=== PATIENT | male | born 1950 | race Caucasian/White ===

== ENCOUNTER 2017-04-07 12:01 | Day surgery (SDC) | payer MEDICARE ==
[~2017-04-07] VITALS: Ht 172.7 cm; Wt 69.4 kg
[~2017-04-07 12:01] MED LIST: LEVSOD100 PO; OXYC5 PO
[2018-02-05] MEDS ORDERED: LEVSOD100 PO (15:13)
[2018-02-05] MEDS ORDERED: Synthroid112 MCG PO (15:14)
== END 2017-04-07 15:00 | disposition home or self-care (01) ==
LOC: ORSCSDS 12:01
PROVIDERS: Surgery
PROC: 0DJD8ZZ Inspection of Lower Intestinal Tract, Via Natural or Artificial Opening Endoscopic (ICD-10-PCS; principal; 2017-04-07 13:30)
DX: Z12.11 Encounter for screening for malignant neoplasm of colon (principal); I10 Essential (primary) hypertension; E03.9 Hypothyroidism, unspecified; Z79.899 Other long term (current) drug therapy
CPT/HCPCS: J2405; J7120

== ENCOUNTER 2018-02-25 09:19 | Day surgery (SDC) | payer MEDICARE, OTHER ==
[~2018-02-25] VITALS: Ht 172.7 cm; Wt 72.6 kg
[~2018-02-25 09:19] MED LIST changes: +Synthroid112 MCG PO
[2018-02-25] MEDS ORDERED: LOSA25 PO (09:36)
[2018-02-25] MEDS ORDERED: VALA500 PO (09:37)
--- NOTE | 2018-02-25 11:07 | NUR ---
02/25/18 1107 Jesus Alberto New INTRASCALING BLOCK COMPLETED IN OR BY DR. YU WITHOUT DIFFICULTY. PT TOLERATED PROCEDURE WELL.
--- NOTE | 2018-02-25 12:31 | NUR ---
02/25/18 1231 AyadRashmi Mili 1220 PT. GIVEN REGLAN FOR NAUSEA PER DR. DE LA ROSA. PT. VERBALIZES NAUSEA A LITTLE BETTER AFTER REGLAN GIVEN. ICE CHIPS & WATER AT SIDE BUT PT. DIDN'T WANT ANYTHING P.O. AT THIS TIME. PT. ALSO DIDN'T WANT HIS GIRLFRIEND BACK AT THIS TIME. PT. GIVEN A WARM BLANKET & CALL LIGHT WITHIN REACH.
== END 2018-02-25 14:17 | disposition home or self-care (01) ==
LOC: ORSCSDS 09:19
PROVIDERS: Orthopaedic Surgery
PROC: 0RNK4ZZ Release Left Shoulder Joint, Percutaneous Endoscopic Approach (ICD-10-PCS; principal; 2018-02-25 10:30)
PROC: 0LQ24ZZ Repair Left Shoulder Tendon, Percutaneous Endoscopic Approach (ICD-10-PCS; principal; 2018-02-25 10:30)
DX: M75.112 Incomplete rotator cuff tear or rupture of left shoulder, not specified as traumatic (principal); M75.42 Impingement syndrome of left shoulder; M75.32 Calcific tendinitis of left shoulder; I10 Essential (primary) hypertension; Z79.899 Other long term (current) drug therapy; E03.9 Hypothyroidism, unspecified
CPT/HCPCS: C1713; J0171; J0690; J1100; J2250; J2370; J2405; J2710; J2765; J3010; J7120

== ENCOUNTER 2018-08-04 20:05 | Emergency (ER) | payer MEDICARE, OTHER ==
[~2018-08-04] VITALS: Ht 172.7 cm; Wt 74.8 kg
[~2018-08-04 20:05] MED LIST changes: +LOSA25 PO; +VALA500 PO
[2018-08-04 20:56] LABS: BASOPHILS ABSOLUTE AUTO 0.01 K/mm3 (0.00-0.23); BASOPHILS PERCENT AUTO 0 % (0-2); EOSINOPHILS ABSOLUTE AUTO 0.14 K/mm3 (0.00-0.68); EOSINOPHILS PERCENT AUTO 3 % (0-6); Hematocrit 40.7 % (37.0-53.0); Hemoglobin 13.9 g/dL (13.5-17.5); IMMATURE GRAN ABSOLUTE AUTO 0.01 K/mm3 (0.00-0.10); IMMATURE GRAN PERCENT AUTO 0 % (0-1); LYMPHOCYTES PERCENT AUTO 20 % (21-46); MONOCYTES ABSOLUTE AUTO 0.77 K/mm3 (0.16-1.47); MONOCYTES PERCENT AUTO 14 % (4-13); Mean Corpuscular HGB 33.3 pg (26.0-34.0); Mean Corpuscular HGB Conc 34.2 g/dL (31.5-36.5); Mean Corpuscular Volume 97 fL (80-100); Mean Platelet Volume 9.3 fL (9.1-12.4); NEUTROPHILS ABSOLUTE AUTO 3.56 K/mm3 (1.96-9.15); NEUTROPHILS PERCENT AUTO 64 % (41-73); Platelet Count 270 K/mm3 (150-400); RDW Coefficient Variation 12.7 % (11.7-14.2); RDW Standard Deviation 45.9 fL (35.1-46.3); Red Blood Cell Count 4.18 M/mm3 (4.30-5.90); White Blood Cell Count 5.59 K/mm3 (4.00-11.30)
[2018-08-04 21:18] LABS: Alanine Aminotransfer (ALT/SGP 23 U/L (12-78); Albumin, Blood 4.1 g/dL (3.4-5.0); Albumin/Globulin Ratio 1.2 (0.8-1.8); Alk Phos 57 U/L (50-136); Anion Gap 6 mmol/L (6-16); Aspartate Aminotrans (AST/SGOT 17 U/L (12-37); Bilirubin, Total 0.4 mg/dL (0.1-1.0); Blood Urea Nitrogen 16 mg/dL (8-24); Bun/Creatinine Ratio 17.5 (12.0-20.0); CO2, Blood 27 mmol/L (21-32); Calcium, Blood 8.8 mg/dL (8.5-10.1); Chloride, Blood 101 mmol/L (98-108); Creatinine, Blood 0.92 mg/dL (0.60-1.20); Globulin, Blood 3.5 g/dL (2.2-4.0); Glomerular Filtration Rate >60 (60-); Glucose, Blood 90 mg/dL (70-99); Sodium, Blood 134 mmol/L (136-145); Total Protein, Blood 7.6 g/dL (6.4-8.2); Troponin I <0.015 ng/mL (0.000-0.040)
== END 2018-08-04 22:50 | disposition home or self-care (01) ==
LOC: ER 20:05
PROVIDERS: Emergency Medicine
DX: I10 Essential (primary) hypertension (principal); Z85.850 Personal history of malignant neoplasm of thyroid; Z79.899 Other long term (current) drug therapy
CPT/HCPCS: 71046; 80053; 83690; 84484; 85025; 93005; 93010; 99284-25

== ENCOUNTER → 2020-05-18 | Outpatient (CLI) | payer OTHER ==
[~2020-05-18] MED LIST changes: +AMBIEN5 MG PO; +AMLODIPINE BES2.5 MG PO; +BACLOFEN10 M4 PO; +LEVOTHYROXINE PO; +MAG-OXIDE MAGN200 MG PO; +METOPROLOL TART25 MG PO; +Vitamin E400 UNI4 PO; +ZYRTEC10 M4 PO; +[UNRECOGNIZED DRUG - OTHER] PO
== END ==
LOC: PLD 12:05 → LAB SHORT 12:05
DX: C44.519 Basal cell carcinoma of skin of other part of trunk (principal); C44.612 Basal cell carcinoma of skin of right upper limb, including shoulder
CPT/HCPCS: 88305

== ENCOUNTER → 2020-06-15 | Outpatient (CLI) | payer OTHER | END | disposition home or self-care (01) | LOC: LAB SHORT 15:18 | DX: C44.519 Basal cell carcinoma of skin of other part of trunk (principal) | CPT/HCPCS: 88305 ==

== ENCOUNTER 2020-08-30 14:08 | Emergency (ER) | payer OTHER ==
[~2020-08-30] VITALS: Ht 172.7 cm; Wt 75.3 kg
[~2020-08-30 14:08] MED LIST changes: -AMBIEN5 MG PO; -AMLODIPINE BES2.5 MG PO; -BACLOFEN10 M4 PO; -LEVOTHYROXINE PO; -MAG-OXIDE MAGN200 MG PO; -METOPROLOL TART25 MG PO; -Vitamin E400 UNI4 PO; -ZYRTEC10 M4 PO; -[UNRECOGNIZED DRUG - OTHER] PO
[2020-08-30] MEDS ORDERED: AMLODIPINE BES2.5 MG PO (14:16)
[2020-08-30] MEDS ORDERED: LEVOTHYROXINE PO (14:17)
[2020-08-30] MEDS ORDERED: BACLOFEN10 M4 PO (14:17)
[2020-08-30] MEDS ORDERED: Vitamin E400 UNI4 PO (14:17)
[2020-08-30] MEDS ORDERED: METOPROLOL TART25 MG PO (14:17)
[2020-08-30] MEDS ORDERED: ZYRTEC10 M4 PO (14:17)
[2020-08-30] MEDS ORDERED: AMBIEN5 MG PO (14:18)
[2020-08-30] MEDS ORDERED: MAG-OXIDE MAGN200 MG PO (14:18)
[2020-08-30] MEDS ORDERED: [UNRECOGNIZED DRUG - OTHER] PO (14:18)
[2020-08-30 14:43] LABS: BASOPHILS ABSOLUTE AUTO 0.01 K/mm3 (0.00-0.23); BASOPHILS PERCENT AUTO 0 % (0-2); EOSINOPHILS ABSOLUTE AUTO 0.07 K/mm3 (0.00-0.68); EOSINOPHILS PERCENT AUTO 1 % (0-6); Hematocrit 36.7 % (37.0-53.0); Hemoglobin 12.6 g/dL (13.5-17.5); IMMATURE GRAN ABSOLUTE AUTO 0.02 K/mm3 (0.00-0.10); IMMATURE GRAN PERCENT AUTO 0 % (0-1); LYMPHOCYTES ABSOLUTE AUTO 1.47 K/mm3 (0.84-5.20); LYMPHOCYTES PERCENT AUTO 19 % (21-46); MONOCYTES ABSOLUTE AUTO 1.08 K/mm3 (0.16-1.47); MONOCYTES PERCENT AUTO 14 % (4-13); Mean Corpuscular HGB 33.5 pg (26.0-34.0); Mean Corpuscular HGB Conc 34.3 g/dL (31.5-36.5); Mean Corpuscular Volume 98 fL (80-100); Mean Platelet Volume 9.3 fL (9.1-12.4); NEUTROPHILS ABSOLUTE AUTO 5.03 K/mm3 (1.96-9.15); NEUTROPHILS PERCENT AUTO 66 % (41-73); Platelet Count 323 K/mm3 (150-400); RDW Standard Deviation 46.5 fL (35.1-46.3); Red Blood Cell Count 3.76 M/mm3 (4.30-5.90); White Blood Cell Count 7.68 K/mm3 (4.00-11.30)
[2020-08-30 14:58] LABS: Albumin, Blood 3.6 g/dL (3.4-5.0); Albumin/Globulin Ratio 0.9 (0.8-1.8); Bilirubin, Total 0.5 mg/dL (0.1-1.0); Bun/Creatinine Ratio 21.3 (12.0-20.0); Calcium, Blood 8.7 mg/dL (8.5-10.1); Creatinine, Blood 1.41 mg/dL (0.60-1.20); Globulin, Blood 3.8 g/dL (2.2-4.0); Magnesium, Blood 2.5 mg/dL (1.6-2.4); Potassium, Blood 4.6 mmol/L (3.5-5.5); Total Protein, Blood 7.4 g/dL (6.4-8.2)
== END 2020-08-30 16:00 | disposition home or self-care (01) ==
LOC: ER 14:08
PROVIDERS: Emergency Medicine
DX: E86.0 Dehydration (principal); R39.2 Extrarenal uremia; Z79.899 Other long term (current) drug therapy
CPT/HCPCS: 80053; 82947; 83735; 85025; 93005; 93010; 99285-25; J7030

== ENCOUNTER → 2020-10-16 | Outpatient (CLI) | payer OTHER ==
[~2020-10-16] MED LIST changes: +AMBIEN5 MG PO; +AMLODIPINE BES2.5 MG PO; +BACLOFEN10 M4 PO; +LEVOTHYROXINE PO; +MAG-OXIDE MAGN200 MG PO; +METOPROLOL TART25 MG PO; +Vitamin E400 UNI4 PO; +ZYRTEC10 M4 PO; +[UNRECOGNIZED DRUG - OTHER] PO
== END | disposition home or self-care (01) ==
LOC: LAB 11:12 → LAB SHORT 11:12
DX: D48.5 Neoplasm of uncertain behavior of skin (principal)
CPT/HCPCS: 88305

== ENCOUNTER → 2021-01-30 | Outpatient (CLI) | payer OTHER | END | disposition home or self-care (01) | LOC: LAB SHORT 07:42 | DX: I78.1 Nevus, non-neoplastic (principal); L57.8 Other skin changes due to chronic exposure to nonionizing radiation | CPT/HCPCS: 88305 ==

== ENCOUNTER → 2022-01-23 | Outpatient (CLI) | payer MEDICARE | LOC: PLD 08:15 → LAB SHORT 08:15 | DX: L72.11 Pilar cyst (principal) | CPT/HCPCS: 88304 ==

== ENCOUNTER → 2022-06-12 | Outpatient (CLI) | payer MEDICARE | LOC: LAB 16:16 → LAB SHORT 16:16 | DX: L08.0 Pyoderma (principal) | CPT/HCPCS: 87102 ==

== ENCOUNTER 2023-06-20 13:08 | Emergency (ER) | payer OTHER ==
[~2023-06-20] VITALS: Ht 172.7 cm; Wt 79.4 kg
[2023-06-20] MEDS ORDERED: Ondansetron HCl 2 MG / ML 2ML Vial ONE (13:26)
[2023-06-20] MEDS ORDERED: NS 1,000 ML IV SCH (13:30)
[2023-06-20] MEDS ORDERED: Ondansetron HCl 2 MG / ML 2ML Vial IV ONE (13:30)
[2023-06-20 14:01] LABS: Hematocrit 36.6 % (37.0-53.0); Hemoglobin 12.4 g/dL (13.5-17.5); Mean Corpuscular HGB Conc 33.9 g/dL (31.5-36.5); Mean Corpuscular Volume 97 fL (80-100); Mean Platelet Volume 9.6 fL (9.1-12.4); Platelet Count 291 K/mm3 (150-400); RDW Coefficient Variation 12.6 % (11.7-14.2); RDW Standard Deviation 45.3 fL (35.1-46.3); Red Blood Cell Count 3.76 M/mm3 (4.30-5.90); White Blood Cell Count 11.26 K/mm3 (4.00-11.30)
[2023-06-20 14:26] LABS: Albumin, Blood 3.5 g/dL (3.4-5.0); Albumin/Globulin Ratio 0.8 (0.8-1.8); Bilirubin, Total 0.5 mg/dL (0.1-1.0); Bun/Creatinine Ratio 24.2 (12.0-20.0); Calcium, Blood 8.9 mg/dL (8.5-10.1); Creatinine, Blood 1.24 mg/dL (0.60-1.20); Globulin, Blood 4.2 g/dL (2.2-4.0); Potassium, Blood 4.1 mmol/L (3.5-5.5); Total Protein, Blood 7.7 g/dL (6.4-8.2)
[2023-06-20 14:29] LABS: BAND PERCENT MAN 12 % (0-8); BASOPHILS PERCENT MAN 0 % (0-2); EOSINOPHILS ABSOLUTE MAN 0.11 K/mm3 (0.00-0.68); EOSINOPHILS PERCENT MAN 1 % (0-6); LYMPHOCYTES ABSOLUTE MAN 0.45 K/mm3 (0.84-5.20); LYMPHOCYTES PERCENT MAN 4 % (21-46); MONOCYTES ABSOLUTE MAN 1.01 K/mm3 (0.16-1.47); MONOCYTES PERCENT MAN 9 % (4-13); NEUTROPHILS ABSOLUTE MAN 9.68 K/mm3 (1.96-9.15); SEG NEUTROPHILS PERCENT MAN 74 % (41-73); TOTAL CELLS COUNTED 100
[2023-06-20] MEDS ORDERED: ONDA4ODT MM (15:52)
[2023-06-20] MEDS ORDERED: LOPE2C PO (15:52)
[2023-06-20 17:40] VITALS: BP 142/90
[2023-06-20 18:30] LABS: Adenovirus F 40/41 Not Detected (NOT DETECT); Astrovirus Not Detected (NOT DETECT); Campylobacter Sp Not Detected (NOT DETECT); Cryptosporidium Not Detected (NOT DETECT); Cyclospora Cayetanensis Not Detected (NOT DETECT); E. Coli O157 Not Detected (NOT DETECT); Entamoeba Histolytica Not Detected (NOT DETECT); Enteroaggregative E. coli-EAEC Not Detected (NOT DETECT); Enteropathogenic E. coli-EPEC Not Detected (NOT DETECT); Enterotoxigenic E. coli-ETEC Not Detected (NOT DETECT); Giardia Lamblia Not Detected (NOT DETECT); Norovirus GI/GII Not Detected (NOT DETECT); Plesiomonas Shigelloides Not Detected (NOT DETECT); Rotavirus A Not Detected (NOT DETECT); Salmonella Sp Not Detected (NOT DETECT); Sapovirus Not Detected (NOT DETECT); Shiga Toxin-prod E. coli-STEC Not Detected (NOT DETECT); Shigella/Enteroin E. coli-EIEC Not Detected (NOT DETECT); Vibrio Cholerae Not Detected (NOT DETECT); Vibrio Sp Not Detected (NOT DETECT); Yersinia Enterocolitica Not Detected (NOT DETECT)
== END 2023-06-20 17:47 | disposition home or self-care (01) ==
LOC: ER 13:08
PROVIDERS: Emergency Medicine
DX: R55 Syncope and collapse (principal); E86.0 Dehydration; R11.2 Nausea with vomiting, unspecified; R19.7 Diarrhea, unspecified; I10 Essential (primary) hypertension; Z79.899 Other long term (current) drug therapy
CPT/HCPCS: 80053; 83690; 84484; 85025; 87507; 93005; 93010; 96361; 96374; 99284-25; J2405; J7030